=== PATIENT | female | born 1985 | race Two or more races ===

== ENCOUNTER 2024-02-10 19:52 | Emergency (ER) | payer MEDICAID, OTHER ==
[~2024-02-10] VITALS: Ht 165.1 cm; Wt 114.0 kg
[2024-02-10 20:00] VITALS: BP 154/63; PULSE 83; RESP 20; O2SAT 100
[2024-02-10] MEDS ORDERED: PRED20TA2 PO (23:31)
[2024-02-10] MEDS ORDERED: ACET500T58 PO (23:31)
== END 2024-02-10 23:41 | disposition home or self-care (01) ==
LOC: ER 19:52
DX: S83.8X2A Sprain of other specified parts of left knee, initial encounter (principal); Z98.890 Other specified postprocedural states; Z79.899 Other long term (current) drug therapy; X58.XXXA Exposure to other specified factors, initial encounter; Y93.89 Activity, other specified; Y92.89 Other specified places as the place of occurrence of the external cause; Y99.8 Other external cause status
CPT/HCPCS: 29505; 73562